=== PATIENT | female | born 1970 | race Hispanic/Latino ===

== ENCOUNTER 2018-07-11 09:19 | Outpatient (CLI) | payer OTHER ==
--- NOTE | 2018-07-11 11:51 | MMO ---
BILATERAL MAMMOGRAMS: HISTORY: Screening mammography. COMPARISON: None available. Baseline study. FINDINGS: Scattered fibroglandular densities. A partially obscured, lobular, 0.5 cm, isodense nodule within th e central aspect of the right breast, on the CC view, is not well delineated on the MLO view, althoug h it could be obscured within an area of denser breast parenchyma, slightly superior. No other domin ant mass or suspicious calcifications. The study was evaluated with the assistance of computer aided detection. IMPRESSION: 1. Focal asymmetry and nodule seen only on one view, right breast; warrants further evaluation. 2. BI-RADS Category 0-Incomplete. Further imaging evaluation needed. The patient will be recalled for additional diagnostic mammographic views of the right breast. Sonog katarzyna should also be scheduled, in case it is needed. POS: RUPESH
== END 2018-07-11 09:20 | disposition home or self-care (01) ==
LOC: SCSMAMMO 09:19
PROVIDERS: ATTEND Family Medicine
DX: Z12.31 Encounter for screening mammogram for malignant neoplasm of breast (principal); N63.10 Unspecified lump in the right breast, unspecified quadrant; N64.89 Other specified disorders of breast
CPT/HCPCS: 77067

== ENCOUNTER 2018-08-28 08:07 | Outpatient (CLI) | payer OTHER ==
--- NOTE | 2018-08-28 14:59 | MMO ---
FILMS COMPARED: The present examination has been compared to a prior imaging study performed at [facility] on 07/11/2018. MAMMOGRAM FINDINGS: There are scattered fibroglandular densities. There is a focal asymmetry seen in the right breast at 12 o'clock. Tomosynthesis images show the abnormality to represent superimpostion of normal breast parenchyma. There are no suspicious masses, calcifications or areas of architectural distortion. IMPRESSION: FOCAL ASYMMETRY IN THE RIGHT BREAST IS BENIGN. A ROUTINE FOLLOW-UP MAMMOGRAM IN 1 YEAR IS RECOMMENDED. ACR BI-RADS Category 2 - Benign finding
== END 2018-08-28 08:08 | disposition home or self-care (01) ==
LOC: BICMAMMO 08:07
PROVIDERS: ATTEND Family Medicine
DX: N63.10 Unspecified lump in the right breast, unspecified quadrant (principal); N64.89 Other specified disorders of breast
CPT/HCPCS: G0279